=== PATIENT | male | born 1985 | race Caucasian/White ===

== ENCOUNTER 2017-05-28 09:17 | Emergency (ER) | payer OTHER ==
[2017-05-28] MEDS ORDERED: DICYCLOMINE 10 MG CAPSULE PO STA (10:24)
[2017-05-28] MEDS ORDERED: ONDANSETRON 4 MG/2 ML VIAL IVP STA (10:24)
[2017-05-28] MEDS ORDERED: SODIUM CHLORIDE 0.9% 1,000 ML IV ONE (10:24)
[2017-05-28] MEDS ORDERED: ONDANSETRON 4 MG/2 ML VIAL ONE (10:33)
[2017-05-28] MEDS ORDERED: DICYCLOMINE 10 MG CAPSULE PO ONE (10:34)
[2017-05-28 10:48] LABS: BASOPHILS # (AUTO) 0.1 10^3/uL (0.0-0.1); BASOPHILS % (AUTO) 1.2 %; EOSINOPHILS # (AUTO) 0.1 10^3/uL (0.0-0.7); EOSINOPHILS % (AUTO) 2.7 %; HGB - HEMOGLOBIN 14.4 g/dL (14.0-18.0); LYMPHOCYTES # (AUTO) 1.6 10^3/uL (1.5-3.5); LYMPHOCYTES % (AUTO) 33.3 %; MEAN CORPUSCULAR HEMOGLOBIN 29.3 pg (27.0-31.0); MEAN CORPUSCULAR HGB CONC 34.1 g/dL (32.0-36.0); MEAN CORPUSCULAR VOLUME 85.7 fL (80.0-94.0); MEAN PLATELET VOLUME 7.4 fL (7.4-11.4); MONOCYTES # (AUTO) 0.5 10^3/uL (0.0-1.0); MONOCYTES % (AUTO) 9.5 %; NEUTROPHILS # (AUTO) 2.6 10^3/uL (1.5-6.6); NEUTROPHILS % (AUTO) 53.3 %; NUCLEATED RED BLOOD CELLS AUTO 0.1 /100WBC; RED BLOOD COUNT 4.91 10^6/uL (4.70-6.10); RED CELL DISTRIBUTION WIDTH 13.2 % (12.0-15.0); UNCORRECTED WHITE BLOOD COUNT 4.8 x10^3/uL; WHITE BLOOD COUNT 4.8 x10^3/uL (4.8-10.8)
[2017-05-28 11:00] LABS: ALBUMIN/GLOBULIN RATIO 1.4 (1.0-2.2); BILIRUBIN,TOTAL 0.5 mg/dL (0.2-1.0); CALCIUM 9.2 mg/dL (8.5-10.3); CREATININE 0.9 mg/dL (0.6-1.2); POTASSIUM 3.9 mmol/L (3.5-5.0); TOTAL PROTEIN 7.1 g/dL (6.7-8.2)
[2017-05-28 12:13] LABS: BILIRUBIN,URINE NEGATIVE (NEGATIVE)
[2017-05-28 12:14] LABS: UA CHARGE (STRIP ONLY) YES; UR CULTURE IF IND NOT INDICATED
[2017-05-28 12:26] VITALS: BP 114/77
--- NOTE | 2017-05-28 12:45 | ED Physician Documentation ---
History of Present Illness - Stated complaint Stated Complaint: ABD PX - Chief complaint Chief Complaint: Abd Pain - Additonal information Additional information: Patient is a healthy 32-year-old man without a significant past medical history presents with a complaint of generalized abdominal cramping nausea, vomiting, diarrhea. He does have a long history of fairly frequent episodes of diarrhea but has never had nausea and vomiting. A couple days ago he started with nausea vomiting and diarrhea. The cramping is generalized and sharp and very brief. He denies any fevers or chills. There is no chest pain or shortness of breath he he normally does have loose stools on occasion but denies that there is any association with anxiety or stress. He has never been diagnosed with IBS. Review of systems: For pertinent positive and negative questions for the review of systems please see history of present illness. Otherwise all other systems have been reviewed and are negative. Dragon disclaimer: Parts of this medical record were created using voice recognition technology. Because of the inherent limitations of this system occasional same sounding word substitutions do occur and persist despite proofreading. Please read the document for context. PD PAST MEDICAL HISTORY - Present Medications Home Medications: Ambulatory Orders Medication Instructions Recorded Confirmed Dicyclomine [Bentyl] 10 mg PO TID PRN #16 capsule 05/28/17 Loperamide [Imodium] 2 mg PO TID #16 capsule 05/28/17 Ondansetron Odt [Zofran] 4 mg TL Q6H PRN #10 tablet 05/28/17 - Allergies Allergies/Adverse Reactions: Allergies Allergy/AdvReac Type Severity Reaction Status Date / Time No Known Drug Allergies Allergy Verified 05/28/17 09:26 PD ED PE NORMAL - General General: Alert and oriented X 3, No acute distress - HEENT HEENT: Atraumatic, PERRL, EOMI, Ears normal, Pharynx benign, Dentition benign - Neck Neck: No bony TTP, No JVD, No bruit - Cardiac Cardiac: RRR, No murmur, No gallop, No rub - Respiratory Respiratory: No respiratory distress, Clear bilaterally - Abdomen Abdomen: Normal bowel sounds, Soft, Non tender, Non distended - Back Back: No CVA TTP, No spinal TTP - Derm Derm: Normal color, No rash - Extremities Extremities: No deformity, No tenderness to palpate, Normal ROM s pain, No edema - Neuro Neuro: Alert and oriented X 3, 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, No motor deficit, No sensory deficit - Psych Psych: Normal mood, Normal affect Results - Vitals Vitals: Vital Signs - 24 hr 05/28/17 05/28/17 09:24 12:26 Temperature 36.5 C Heart Rate 78 70 Respiratory 16 12 Rate Blood Pressure 137/75 H 114/77 O2 Saturation 100 100 Oxygen O2 Source Room air - Labs Labs: Laboratory Tests 05/28/17 05/28/17 05/28/17 10:44 10:44 12:03 WBC 4.8 RBC 4.91 Hgb 14.4 Hct 42.0 MCV 85.7 MCH 29.3 MCHC 34.1 RDW 13.2 Plt Count 183 MPV 7.4 Neut # 2.6 Lymph # 1.6 Stearns # 0.5 Eos # 0.1 Baso # 0.1 Absolute Nucleated RBC 0.00 Nucleated RBCs 0.1 Sodium 140 Potassium 3.9 Chloride 102 Carbon Dioxide 30 Anion Gap 8.0 BUN 16 Creatinine 0.9 Estimated GFR (MDRD) 98 Glucose 105 H Calcium 9.2 Total Bilirubin 0.5 AST 26 ALT 39 Alkaline Phosphatase 65 Total Protein 7.1 Albumin 4.2 Globulin 2.9 Albumin/Globulin Ratio 1.4 Lipase 36 Urine Color YELLOW Urine Clarity CLEAR Urine pH 6.0 Ur Specific [place] 1.025 Urine Protein NEGATIVE Urine Glucose (UA) NEGATIVE Urine Ketones NEGATIVE Urine Occult Blood NEGATIVE Urine Nitrite NEGATIVE Urine Bilirubin NEGATIVE Urine Urobilinogen 0.2 (NORMAL) Ur Leukocyte Esterase NEGATIVE Ur Microscopic Review NOT INDICATED Urine Culture Comments NOT INDICATED PD MEDICAL DECISION MAKING - ED course ED course: Patient is a well-appearing healthy man with a tendency towards frequent episodes of diarrhea historically. He presents with nausea vomiting diarrhea over the past couple days. On exam he looks perfect. He has normal vital signs is tall and healthy. Is a soft nontender abdomen with a minor finding of increased borborygmi. Routine labs are done and are normal was given IV fluids Bentyl and Zofran and looks and feels better. I suspect this could be a viral gastroenteritis. It sounds like he may have some underlying possible IBS type issues. I am recommending fluids, follow-up, a low-fat diet and Bentyl loperamide and Zofran as as needed medications. Disposition: To home Clinical impression: 1. Nausea vomiting diarrhea Departure - Departure Clinical Impression: Gastroenteritis Condition: Good Instructions: ED Gastroenteritis Viral Follow-Up: YOUR,PHYSICIAN [Other] Prescriptions: Dicyclomine [Bentyl] 10 mg PO TID PRN #16 capsule PRN Reason: Abdominal Pain Loperamide [Imodium] 2 mg PO TID #16 capsule Ondansetron Odt [Zofran] 4 mg TL Q6H PRN #10 tablet PRN Reason: Nausea / Vomiting
== END 2017-05-28 13:03 | disposition home or self-care (01) ==
LOC: ED 09:17
DX: K52.9 Noninfective gastroenteritis and colitis, unspecified (principal)
CPT/HCPCS: 36415; 80053; 81003; 83690; 85025; 96374; 99283; 99284; A9270; 81001; 87086

== ENCOUNTER 2019-10-07 14:15 | Outpatient (CLI) | payer OTHER ==
[2019-10-07 15:38] VITALS: BP 133/84
--- NOTE | 2019-10-07 15:38 | SLEEP CARE CONSULTATION ---
Information from patient questionnaire entered by Caryn Turner. I have reviewed and concur with the information entered by Caryn Turner. This document represents the service I personally performed and the decisions made by me, Shauna Antonio MD, [facility]. History of Present Illness Reason for Visit: New patient Chief Complaint: reports: Unrefreshed sleep, Frequent awakenings at night Duration of Symptoms: 10 years Usual bedtime: 5811-0110 Time it takes to fall asleep: 30 minutes Snores at night: Yes Observed to quit breathing while asleep: No Sleeps alone due to snoring: No Number of times waking at night: 1-2 Reasons for waking at night: reports: Gasping for air (maybe), Other (unknown) Toss, Turn, or Twitch while sleeping: Yes Recalls having dreams: Yes Usually gets out of bed at: 0630 Feels refreshed in the morning: No Morning headache: No Sleepy or fatigued during the day: Yes Ever fallen asleep while driving: No Takes day naps: No Dreams during day naps: No Prior sleep studies: No Additional HPI information: I had the pleasure of seeing Mr. Milton today regarding the possibility of him having a sleep disorder. As you know, he is a 34 year old gentleman who complains of frequent awakenings. The patient tells me that he normally goes to bed around 10 - 12 pm, and it takes him approximately 30 minutes to fall asleep. He has been told that he snores loudly and irregularly at night. He has never been observed to stop breathing in his sleep. His can still sleep in the same bed. He can recall waking up on the average of 1 - 2 times during the night. Most of the time he wakes up because of no reasons. He has never awakened because of his own snoring, choking, or having to gasp for air. There is a lot of tossing and turning in his sleep. No somniloquy (sleep talking) or somnambulism (sleep walking). Generally he can recall having dreams. In the morning he usually gets up out of the bed around 6:30 a.m. not feeling refreshed nor rested. He usually does not have a morning headache. During the day he complains of feeling sleepy and fatigued. His score on [place] Sleepiness Scale is 6 out of 24. He has never fallen asleep while driving nor has had any accident due to sleepiness. He usually does not take naps during the day. Upon falling asleep during the day he denies having vivid dreams. He has never had sleep paralysis, experienced cataplexy or symptoms of restless leg syndrome. He denies having impaired concentration during the day. 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 Patient is and lives in [place]. Have you smoked in the past 12 months: No Alcohol use: Yes Alcohol amount and frequency: 3/week Caffeine use: No Family History Family history of sleep disordered breathing: No Allergies and Home Medications Drug allergies reviewed: Yes Home medication list reviewed: Yes Review of Systems Cardiovascular: denies: high blood pressure, palpitations, chest pain, irregular heart rate or pulse, leg or foot swelling, have to sleep sitting up, other Respiratory: denies: shortness of breath, wheeze, sputum production, chronic cough, other Gastrointestinal: denies: heartburn, difficulty swallowing, nausea, vomitting, diarrhea, abdominal pain, other Urinary: denies: incontinence, frequency, urgency, impotence, other Neurological: denies: headaches, seizure, head trauma, disorientation, speech dysfunction, gait or balance problems, fainting or unconsciousness, other Psychiatric: denies: Attention Deficit Hyperactivity, anxiety, depression, mood disorder, claustrophobia, other Ear/Nose/Throat: reports: nasal congestion Endocrine: denies: thyroid disease, history of goiter, sluggishness, too hot or cold, excessive thirst, increased appetite, increased urination, unexplained weakness, other Musculoskeletal: reports: joint pain Immunologic: denies: sneezing, rash, itching, allergies to food or environment, other Physical Exam Vital signs obtained and entered by: Dr. Antonio Blood Pressure: 133/84 Cuff size: regular Heart Rate: 71 O2 Saturation: 98 Height: 5 ft 11 in Weight: 185 lb Body Mass Index: 25.7 BMI Classification: Overweight Neck circumference: 16 Mood/affect: normal HEENT: No craniofacial malformation Nostrils: patent to airflow Turbinates: normal Septum: deviated left Mouth and throat: narrow oropharynx Soft palate: long Hard palate: normal Uvula: normal Uvula visualization: 25% Mallampati Class III Tongue: normal in size Tonsils: small Chin and jaw: normal size and position Neck: normal w/o lymphadenopathy or thyromegaly Heart: regular rate and rhythm Lungs: clear bilaterally Abdomen: soft, non-tender Extremities: no edema or clubbing Neurologic: intact, no focal deficits Impression and Plan IMPRESSION: 1. Obstructive Sleep Apnea-Hypopnea Syndrome, as suggested by history of loud and irregular snoring, frequent awakenings during the night, unrefreshed sleep, and daytime hypersomnolence. Narrow oropharynx and obesity are common predisposing factors for obstructive sleep apnea-hypopnea syndrome. Pathophysiology of sleep-disordered breathing was discussed. I recommend proceeding to polysomnography to confirm the diagnosis and to assess severity. I informed the patient of what the sleep studies involve and after some discussion, he agreed to proceed. Plan: 1. Schedule polysomnography and return in 1 to 2 weeks after the study to discuss result and initiate therapy. 2. Avoid long distance driving or when feeling sleepy. 3. Avoid alcohol, sedative and muscle relaxant around bedtime. 4. Attempt to lose some weight. I spent 100% of this 20 minute visit face to face with the patient with greater than 50% of this was spent time counseling the patient and coordination of care.
== END 2019-10-07 14:16 | disposition home or self-care (01) ==
LOC: SC 14:15
PROVIDERS: ATTEND Internal Medicine Pulmonary Disease
DX: R06.83 Snoring (principal); G47.8 Other sleep disorders; G47.10 Hypersomnia, unspecified
CPT/HCPCS: 99203; 99212

== ENCOUNTER 2019-11-02 20:25 | Outpatient (CLI) | payer OTHER | END 2019-11-02 20:26 | disposition home or self-care (01) | LOC: SC 20:25 | PROVIDERS: ATTEND Internal Medicine Pulmonary Disease | DX: R06.83 Snoring (principal); G47.10 Hypersomnia, unspecified | CPT/HCPCS: 95810 ==

== ENCOUNTER 2019-12-02 08:15 | Outpatient (CLI) | payer OTHER ==
[2019-12-02 09:08] VITALS: BP 112/70
--- NOTE | 2019-12-02 09:08 | SLEEP CARE CONSULTATION ---
Information from patient questionnaire entered by Caryn Turner. I have reviewed and concur with the information entered by Caryn Turner. This document represents the service I personally performed and the decisions made by me, Katie Davidson RN, MSN, [employer]. History of Present Illness Initial [place] Sleepiness Scale score: 6 Current [place] Sleepiness Scale score: 5 Additional HPI information: ZUHAIR GUARDADO returns with partner for follow up of the recently performed polysomnography and informed of findings. I explained the pathophysiology behind obstructive sleep apnea. Patient does not have sleep apnea and was advised how weight gain could increase the risk of developing sleep apnea in the future. I strongly encouraged the patient to lose some weight and not to gain weight. Patient does not have significant sleep disordered breathing but what few apnea he does have are in supine position so advised he can try positional therapy to see if more rested. Methods to achieve positional management therapy were discussed; such as, positioning with pillows, wearing a T-shirt with tennis balls sewn into the back, Rematee shirt, Zzomba belt and Slumberbump belt. Pamphlets provided on how to obtain the commercially available products. Patient in middle of transfering in a few months to [facility]. Patient has light to moderate snoring. Snoring can be reduced by weight loss. Weight loss is best achieved with diet consult. His BMI is only 25 and patient states he is able to lose weight when tries. Snoring can also be treated with an oral appliance from a dentist. Patient is not interested. In addition, an ENT evaluation can be do to see if other treatment is indicated. Patient has already seen an ENT and has surgery planned at end of month to improve nasal breathing with septoplasty and turbinate reduction. Patient counseled not drink alcohol less than 4 hours before bedtime as it can increase snoring and apnea. Patient was cautioned about risks of drowsy driving until sleepiness symptoms resolve. Patient denies drowsy driving. AAS patient education on snoring and sleep apnea given and reviewed. Sleep Study - Results Polysomnography/Home Sleep Study results: The quality of the study is good. The patient had slightly reduced sleep efficiency due to a prolonged awakening in the second half of the night. The sleep architecture was normal. Respiratory monitoring showed no significant sleep disordered breathing (AHI = 0.8) or hypoxia (caroline oxygen saturation of 89%). The few respiratory events occurred mainly during supine sleep (supine AHI = 4.6; non-supine = 0.19). Snore was light to moderate in intensity. There was no significant periodic leg movement of sleep. Cardiac rhythm was normal sinus rhythm without significant arrhythmia. No abnormal behavior (parasomnia) observed during the night. Allergies and Home Medications Known drug allergies: No Home medication list reviewed: Yes Allergy and home medication list: Imodium prn Naproxen prn Review of Systems Review of systems same as previous: Yes Physical Exam Blood Pressure: 112/70 Cuff size: long Heart Rate: 81 O2 Saturation: 98 Height: 5 ft 11 in Weight: 206 lb 12.8 oz Body Mass Index: 28.8 BMI Classification: Overweight Impression and Plan Snoring but no significant sleep disordered breathing. The few respiratory events occurred in supine position. Patient advised he can try positional therapy with pillow positioning to see if he sleeps better until he has his septoplasty to improve his nasal breathing. He states it is very hard to breathe through his nose. I have found that patients sleep is generally improved with when nasal breathing is improved by septoplasty. Patient advised not to gain weight as it will increase snoring and apnea risk. If he continues to have difficulty initiating and maintaining sleep after his recovery from septoplasty, he is advised to follow up with another sleep provider in new area of residence to determine etiology. * Continue with plan for septoplasty. * Attempt to lose some weight * Avoid alcohol consumption near bedtime * The patient is cautioned about driving until sleepiness is completely resolved. * Return as needed for follow up. Time Spent with Patient (minutes): 30 I spent 100% of this visit face to face with the patient with greater than 50% of this was spent time counseling the patient and coordination of care.
== END 2019-12-02 08:16 | disposition home or self-care (01) ==
LOC: SC 08:15
PROVIDERS: ATTEND Nurse Practitioner Family
DX: R06.83 Snoring (principal)
CPT/HCPCS: 99212; 99214

== ENCOUNTER 2019-12-16 09:25 | Emergency (ER) | payer OTHER ==
--- NOTE | 2019-12-16 10:28 | ED Physician Documentation ---
PD HPI MALE - Stated complaint Stated Complaint: MALE - Chief complaint Chief Complaint: UTI - History obtained from History obtained from: Patient - History of Present Illness Timing - onset: How many days ago (3) Timing - duration: Days (3) Timing - details: Abrupt onset, Still present Associated symptoms: Dysuria PD HPI MALE CONTRIB FACTORS: Sexually active, Homosexual, Exposed to STD Similar symptoms before: Has not had sx before Recently seen: Not recently seen - Additional information Additional information: 34-year-old male reports is a homosexual encounter 3 days ago with immediately following pain to the urethra he has not had discharge he continues to have pain in the urethra with urination. He has not had fever or flank pain he has not had nausea or vomiting. He has no prior experience with STD. Review of Systems Constitutional: denies: Fever Eyes: denies: Decreased vision Ears: denies: Ear pain Nose: denies: Rhinorrhea / runny nose, Congestion Throat: denies: Sore throat Cardiac: denies: Chest pain / pressure, Palpitations Respiratory: denies: Dyspnea, Cough : reports: Dysuria. denies: Hematuria, Discharge PD PAST MEDICAL HISTORY - Present Medications Home Medications: Ambulatory Orders Medication Instructions Recorded Confirmed Dicyclomine [Bentyl] 10 mg PO TID PRN #16 capsule 05/28/17 Loperamide [Imodium] 2 mg PO TID #16 capsule 05/28/17 Ondansetron Odt [Zofran] 4 mg TL Q6H PRN #10 tablet 05/28/17 - Allergies Allergies/Adverse Reactions: Allergies Allergy/AdvReac Type Severity Reaction Status Date / Time No Known Drug Allergies Allergy Verified 12/16/19 09:33 PD ED PE NORMAL - Vitals Vital signs reviewed: Yes (Hypertensive) - General General: Alert and oriented X 3, No acute distress, Well developed/nourished - HEENT HEENT: Atraumatic, PERRL, EOMI - Respiratory Respiratory: No respiratory distress - Male Male : Other (There is minimal meatal inflammation present there are no sores blisters or lesions on the penis scrotum or perineum. 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, No motor deficit, No sensory deficit, Normal speech Eye Opening: Spontaneous Motor: Obeys Commands Verbal: Oriented GCS Score: 15 - Psych Psych: Normal mood, Normal affect Results - Vitals Vitals: Vital Signs - 24 hr 12/16/19 09:30 Temperature 36.5 C Heart Rate 98 Respiratory 14 Rate Blood Pressure 153/95 H O2 Saturation 98 Oxygen O2 Source Room air - Labs Labs: Laboratory Tests 12/16/19 09:40 Urine Color YELLOW Urine Clarity CLEAR Urine pH 6.0 Ur Specific [place] <=1.005 Urine Protein NEGATIVE Urine Glucose (UA) NEGATIVE Urine Ketones NEGATIVE Urine Occult Blood NEGATIVE Urine Nitrite NEGATIVE Urine Bilirubin NEGATIVE Urine Urobilinogen 0.2 (NORMAL) Ur Leukocyte Esterase NEGATIVE Ur Microscopic Review NOT INDICATED Urine Culture Comments NOT INDICATED PD MEDICAL DECISION MAKING - ED course Complexity details: reviewed results, considered differential, d/w patient ED course: 34-year-old male with exposure to STD has symptoms and he is treated. He is administered Rocephin 250 mg IM and azithromycin 1000 mg orally. The urine is sent for chlamydia and GC DNA. Urinalysis is unremarkable. Departure - Departure Disposition: Home, Self Care Clinical Impression: STD (male) Condition: Stable Instructions: ED STD Male Treated Follow-Up: ALETHEA Lipscomb [Provider Group]
[2019-12-16 10:29] LABS: BILIRUBIN,URINE NEGATIVE (NEGATIVE); GLUCOSE, URINE (UA) NEGATIVE (NEGATIVE); KETONES,URINE (UA) NEGATIVE (NEGATIVE); LEUKOCYTE ESTERASE, URINE NEGATIVE (NEGATIVE); NITRITE,URINE NEGATIVE (NEGATIVE); OCCULT BLOOD,URINE NEGATIVE (NEGATIVE); PROTEIN,URINE NEGATIVE (NEGATIVE); UROBILINOGEN,URINE 0.2 (NORMAL) E.U./dL (NORMAL)
[2019-12-16 10:32] LABS: CLARITY,URINE CLEAR (CLEAR)
[2019-12-16] MEDS ORDERED: AZITHROMYCIN 250 MG TABLET PO STA (10:35)
[2019-12-16] MEDS ORDERED: LIDOCAINE 1% 2 ML VIAL MC ONE (10:35)
[2019-12-16] MEDS ORDERED: cefTRIAXone 250 MG VIAL IM STA (10:35)
[2019-12-16 10:54] VITALS: BP 137/100
[2019-12-16 20:50] LABS: TRICHOMONAS VAGINALIS DNA NEGATIVE (NEGATIVE)
== END 2019-12-16 10:54 | disposition home or self-care (01) ==
LOC: ED 09:25
DX: A64 Unspecified sexually transmitted disease (principal)
CPT/HCPCS: 81003; 87491; 87591; 87661; 96372; 99283; 99284; A9270; 81001; 87086

== ENCOUNTER 2019-12-23 16:10 | Emergency (ER) | payer OTHER ==
--- NOTE | 2019-12-23 17:06 | ED Physician Documentation ---
History of Present Illness - Stated complaint Stated Complaint: M - Chief complaint Chief Complaint: General - History obtained from History obtained from: Patient (34-year-old male generally healthy, presented to the emergency room with left testicular pain that started last night. It was mild and vague about 1 out of 10, he was able to sleep last night and this morning pain recur, currently the pain is 3 out of 10. No hematuria no dysuria no fever no chills. He was recently checked for STD and urinalysis and the test came back negative. No traumatic injury to the left testicle. He did not notice any lump or mass to the groin area) - History of Present Illness Timing: How many days ago (1) Review of Systems Ten Systems: 10 systems reviewed and negative Constitutional: reports: Reviewed and negative Eyes: reports: Reviewed and negative Ears: reports: Reviewed and negative Nose: reports: Reviewed and negative Throat: reports: Reviewed and negative Cardiac: reports: Reviewed and negative Respiratory: reports: Reviewed and negative GI: reports: Reviewed and negative : reports: Testicular pain Skin: reports: Reviewed and negative Musculoskeletal: reports: Reviewed and negative Neurologic: reports: Reviewed and negative Psychiatric: reports: Reviewed and negative Endocrine: reports: Reviewed and negative Immunocompromised: reports: Reviewed and negative PD PAST MEDICAL HISTORY - Past Medical History Past Medical History: Yes Cardiovascular: None Respiratory: None Neuro: None Endocrine/Autoimmune: None GI: None : None HEENT: None Psych: None Musculoskeletal: None Derm: None - Past Surgical History Past Surgical History: Yes HEENT: Other - Present Medications Home Medications: Ambulatory Orders Medication Instructions Recorded Confirmed Dicyclomine [Bentyl] 10 mg PO TID PRN #16 capsule 05/28/17 Loperamide [Imodium] 2 mg PO TID #16 capsule 05/28/17 Ondansetron Odt [Zofran] 4 mg TL Q6H PRN #10 tablet 05/28/17 - Allergies Allergies/Adverse Reactions: Allergies Allergy/AdvReac Type Severity Reaction Status Date / Time No Known Drug Allergies Allergy Verified 12/23/19 16:18 - Social History Does the pt smoke?: No Smoking Status: Former smoker Does the pt drink ETOH?: Yes Does the pt have substance abuse?: No - Immunizations Immunizations are current?: Yes - POLST Patient has POLST: No PD ED PE NORMAL - Vitals Vital signs reviewed: Yes - General General: Alert and oriented X 3, No acute distress - HEENT HEENT: PERRL - Neck Neck: Supple, no meningeal sign - Cardiac Cardiac: RRR, No murmur - Respiratory Respiratory: Clear bilaterally - Abdomen Abdomen: Normal bowel sounds, Soft, Non tender, Non distended - Male Male : Other (Good progress to reflect bilaterally, left testicle posterior aspect mildly tender on palpation, no discoloration, no signs of infection,) - Derm Derm: Warm and dry - Extremities Extremities: No deformity - Neuro Neuro: Alert and oriented X 3 - Psych Psych: Normal mood, Normal affect Results - Vitals Vitals: Vital Signs - 24 hr 12/23/19 16:18 Temperature 36.9 C Heart Rate 76 Respiratory 14 Rate Blood Pressure 152/89 H O2 Saturation 98 Oxygen O2 Source Room air - Labs Labs: Laboratory Tests 12/23/19 17:24 Urine Color YELLOW Urine Clarity CLEAR Urine pH 6.5 Ur Specific [place] 1.010 Urine Protein NEGATIVE Urine Glucose (UA) NEGATIVE Urine Ketones NEGATIVE Urine Occult Blood NEGATIVE Urine Nitrite NEGATIVE Urine Bilirubin NEGATIVE Urine Urobilinogen 0.2 (NORMAL) Ur Leukocyte Esterase NEGATIVE Urine RBC Cancelled Urine WBC Cancelled Urine WBC Clumps Cancelled Ur Epithelial Cells Cancelled Ur Squamous Epith Cells Cancelled Urine Crystals Cancelled Amorphous Sediment Cancelled Urine Bacteria Cancelled Urine Casts Cancelled Urine Starch Cancelled Urine Mucus Cancelled Urine Trichomonas Cancelled Urine Yeast Cancelled Urine Sperm Cancelled Ur Oval Fat Bodies Cancelled Ur Microscopic Review NOT INDICATED Urine Culture Comments NOT INDICATED - Rads (name of study) No standard instances Radiology: Other (Ultrasound of testicles normal, No testicular mass, no epididymitis) PD MEDICAL DECISION MAKING - ED course Complexity details: d/w patient ED course: 34-year-old with left-sided testicular pain, differential diagnoses include epididymitis, testicular torsion, nonspecific testicular pain including hydrocele. He agreed to have ultrasound performed, we will also check urinalysis to see if there is infection. At 6:10 PM, patient is reassessed and disclosed negative urinalysis and negative Ultrasound of the testicle. No testicular torsion, no epididymitis. Patient is assured. He is asked to continue monitoring his discomfort and pain. If this become recurrent, he can follow-up with primary care doctor for urology referral. He agreed with this approach. Departure - Departure Disposition: 01 Home, Self Care Clinical Impression: Testicular pain, left Condition: Stable Instructions: ED Abdominal Pain Unkn Cause Comments: Please continue following up with your primary care doctor for potential urology referral if this pain become recurrent
[2019-12-23 17:40] LABS: BILIRUBIN,URINE NEGATIVE (NEGATIVE); CLARITY,URINE CLEAR (CLEAR); GLUCOSE, URINE (UA) NEGATIVE (NEGATIVE); KETONES,URINE (UA) NEGATIVE (NEGATIVE); LEUKOCYTE ESTERASE, URINE NEGATIVE (NEGATIVE); NITRITE,URINE NEGATIVE (NEGATIVE); OCCULT BLOOD,URINE NEGATIVE (NEGATIVE); PH,URINE 6.5 PH (5.0-7.5); PROTEIN,URINE NEGATIVE (NEGATIVE); UROBILINOGEN,URINE 0.2 (NORMAL) E.U./dL (NORMAL)
--- NOTE | 2019-12-23 17:56 | Ultrasound Report ---
Reason: left testicular pain Procedure Date: 12/23/2019 Accession Number: [id number] / [id number] Procedure: US - Testicle w/Doppler CPT Code: Final Report FULL RESULT: EXAM: SCROTAL ULTRASOUND EXAM DATE: 12/23/2019 05:43 PM. CLINICAL HISTORY: Left testicular pain. COMPARISON: None. TECHNIQUE: Real-time scanning was performed with static images obtained. Color-flow images were utilized. FINDINGS: Right: Testis: 4.3 x 2.7 x 2.9 cm. Normal size and echotexture. No mass, calcification, or abnormal blood flow. Epididymis: 1.0 x 1.6 x 1.3 cm. Normal size and echotexture. Right epididymis head 4 mm cysts. Hydrocele: Small Varicocele: None. Left: Testis: 4.0 x 2.5 x 3.1 cm. Normal size and echotexture. No mass, calcification, or abnormal blood flow. Epididymis: 1.1 x 1.0 x 1.9 cm. Normal size and echotexture. No mass or abnormal blood flow. Hydrocele: Small Varicocele: None. IMPRESSION: 1. Negative for testicular mass. 2. Negative for epididymitis. RADIA
[2019-12-23 18:38] VITALS: BP 132/94
== END 2019-12-23 18:41 | disposition home or self-care (01) ==
LOC: ED 16:10
DX: N50.812 Left testicular pain (principal); Z87.891 Personal history of nicotine dependence
CPT/HCPCS: 76870; 81001; 81003; 87086; 93975; 99284

== ENCOUNTER 2020-01-08 12:35 | Emergency (ER) | payer OTHER ==
[2020-01-08 12:46] VITALS: BP 144/102
--- NOTE | 2020-01-08 13:30 | ED Physician Documentation ---
History of Present Illness - Stated complaint Stated Complaint: WHITE DOTS ON GUMS/MOUTH PX - Chief complaint Chief Complaint: Heent - History obtained from History obtained from: Patient - History of Present Illness Timing: Yesterday Pain level max: 0 Pain level now: 0 - Additonal information Additional information: 34-year-old male presents to the emergency department stating that he has sores on his mouth for the last 24 hours. Concerned about STDs as he had unprotected intercourse with another male approximately a month ago. No fevers. No cough. No vomiting. Nothing makes it better or worse Review of Systems Constitutional: denies: Fever, Chills Cardiac: denies: Chest pain / pressure Respiratory: denies: Cough GI: denies: Abdominal Pain, Nausea, Vomiting, Diarrhea Skin: denies: Rash Musculoskeletal: denies: Neck pain, Back pain Neurologic: denies: Headache PD PAST MEDICAL HISTORY - Past Medical History Past Medical History: No Cardiovascular: None Respiratory: None Neuro: None Endocrine/Autoimmune: None GI: None : None HEENT: None Psych: None Musculoskeletal: None Derm: None - Past Surgical History Past Surgical History: Yes HEENT: Other - Present Medications Home Medications: Ambulatory Orders Medication Instructions Recorded Confirmed Naproxen 250 mg PO 01/08/20 Valacyclovir HCl [Valtrex] 1,000 mg PO BID #14 tablet 01/08/20 - Allergies Allergies/Adverse Reactions: Allergies Allergy/AdvReac Type Severity Reaction Status Date / Time No Known Drug Allergies Allergy Verified 01/08/20 12:46 - Social History Does the pt smoke?: No Smoking Status: Never smoker Does the pt drink ETOH?: Yes Does the pt have substance abuse?: No - Immunizations Immunizations are current?: Yes - POLST Patient has POLST: No PD ED PE NORMAL - Vitals Vital signs reviewed: Yes - General General: Alert and oriented X 3, No acute distress, Well developed/nourished - HEENT HEENT: Moist mucous membranes, Other (Intraoral shallow ulcerations. Normal posterior oropharynx. The ulcerations are on the cheeks.) - Neck Neck: Supple, no meningeal sign - Cardiac Cardiac: RRR, Strong equal pulses - Respiratory Respiratory: No respiratory distress, Clear bilaterally - Abdomen Abdomen: Soft, Non tender, Non distended - Derm Derm: Warm and dry, No rash - Extremities Extremities: No edema - Neuro Neuro: Alert and oriented X 3 - Psych Psych: Normal mood, Normal affect Results - Vitals Vitals: Vital Signs - 24 hr 01/08/20 12:43 Temperature 37.3 C Heart Rate 88 Respiratory 18 Rate Blood Pressure 144/102 H O2 Saturation 99 Oxygen O2 Source Room air PD MEDICAL DECISION MAKING - ED course Complexity details: considered differential, d/w patient ED course: 34-year-old male with what appears to be oral herpes. Will place on Valtrex for this. Patient was swabbed for herpes as well as urine sent for gonorrhea and Chlamydia testing. I recommend he have full STD testing with his doctor. Patient counseled regarding signs and symptoms for which I believe and urgent re-evaluation would be necessary. Patient with good understanding of and agreement to plan and is comfortable going home at this time This document was made in part using voice recognition software. While efforts are made to proofread this document, sound alike and grammatical errors may occur. Departure - Departure Disposition: 01 Home, Self Care Clinical Impression: Herpes labialis Condition: Good Instructions: ED Herpes Simplex Virus Type 1 Follow-Up: your,doctor in 1 week [Other] Prescriptions: Valacyclovir HCl [Valtrex] 1,000 mg PO BID #14 tablet Comments: Use the medications as prescribed. Return if you worsen. Follow-up with your doctor for further care. Testing was sent for herpes, gonorrhea, chlamydia and trichomonas. Any further STD testing including HIV testing will need to be performed with your doctor.
[2020-01-08 19:40] LABS: TRICHOMONAS VAGINALIS DNA NEGATIVE (NEGATIVE)
[2020-01-10 06:12] LABS: SOURCE CHEEK ULCERS
== END 2020-01-08 13:41 | disposition home or self-care (01) ==
LOC: ED 12:35
DX: B00.1 Herpesviral vesicular dermatitis (principal)
CPT/HCPCS: 36415; 87491; 87529; 87591; 87661; 99283; 99284